=== PATIENT | male | born 1985 | race Two or more races ===

== ENCOUNTER 2019-03-19 18:17 | Emergency (ER) | payer OTHER ==
[~2019-03-19] VITALS: Ht 170.2 cm; Wt 84.8 kg
[~2019-03-19 18:17] MED LIST: CIPR500T4 PO; HYDR-3980 PO; IBUP800T48 PO; METR500T PO; OMEP40CA38 PO; ONDA4TAB14 PO
[2019-03-19 18:39] VITALS: BP 119/68; PULSE 84; RESP 18; Ht 170.2 cm; Wt 84.8 kg
== END 2019-03-19 20:53 | disposition home or self-care (01) ==
LOC: FTE 18:17
DX: R10.84 Generalized abdominal pain (principal); F17.210 Nicotine dependence, cigarettes, uncomplicated
CPT/HCPCS: 99283